=== PATIENT | male | born 1970 | race Caucasian/White ===

== ENCOUNTER 2018-07-03 08:48 | Emergency (ER) | payer OTHER ==
[~2018-07-03] VITALS: Ht 165.1 cm; Wt 59.9 kg
[2018-07-03 08:56] VITALS: BP 121/82; Ht 165.1 cm; Wt 59.9 kg
== END 2018-07-03 09:40 | disposition home or self-care (01) ==
LOC: ED 08:48
DX: R10.31 Right lower quadrant pain (principal)

== ENCOUNTER 2018-07-06 08:55 | Emergency (ER) | payer OTHER ==
[~2018-07-06] VITALS: Ht 165.1 cm; Wt 62.1 kg
[2018-07-06 08:59] VITALS: BP 110/69; Ht 165.1 cm; Wt 62.1 kg
== END 2018-07-06 09:58 | disposition left against medical advice (07) ==
LOC: ED 08:55
DX: Z02.79 Encounter for issue of other medical certificate (principal)

== ENCOUNTER 2018-10-20 17:17 | Emergency (ER) | payer OTHER ==
[~2018-10-20] VITALS: Ht 165.1 cm; Wt 61.2 kg
[2018-10-20 17:29] VITALS: Ht 165.1 cm; Wt 61.2 kg
[2018-10-20 19:08] VITALS: BP 133/76
== END 2018-10-20 19:09 | disposition home or self-care (01) ==
LOC: ED 17:17
DX: R11.2 Nausea with vomiting, unspecified (principal); R10.13 Epigastric pain